=== PATIENT | male | born 1995 | race Caucasian/White ===

== ENCOUNTER 2023-07-25 23:18 | Emergency (ER) | payer OTHER, SELFPAY ==
[2023-07-25 23:20] VITALS: BP 150/93
[2023-07-26 02:20] VITALS: BMI 29.5
--- NOTE | 2023-07-26 02:21 | ED.GENMED ---
History of Present Illness
General
Chief Complaint: Musculo-Skeletal Complaint
Source: patient
Exam Limitations: none
Time Seen by Provider: 07/26/23 02:02
Nursing documentation reviewed up to this point in time: agreed with
Travel History
Have you had any contact with someone who has COVID-19?: No
Do you have any symptoms of coronavirus? Fever > 100 degrees, chills, cough, shortness of breath, sore throat, loss of taste or smell, muscle aches, or headache?: No
History of Present Illness
History of Present Illness:
Patient presents to ED secondary to worsening pain over the top of his right foot over the past 2 days. Denies loss of sensation or weakness. Denies fever or chills. Denies direct trauma. However, patient does report running over 20 miles
recently as part of his training, and jumping off the truck few days ago. Patient denies any pain at rest, but present when weightbearing. Patient has been able to ambulate by walking mostly on his heel. Denies previous history of similar
symptoms.
Review of Systems
Review of Systems
Allergies reviewed?: Yes
All Other Systems: ROS reviewed and negative except as documented in HPI and ROS
Constitutional: Reports no symptoms
Musculoskeletal: Reports other (foot pain)
Skin: Reports no symptoms
Neurological: Reports no symptoms
Phy Exam
Physical Exam
Physical Exam:
Physical Exam
General: no apparent distress, not acutely ill. afebrile
Head: nc/at. eomi
Neck: supple. normal range of motion
Neuro: alert and oriented. no focal neurological deficits
Skin: no rash
Psychiatric: well kept. interactive and cooperative
Extremities: right foot - mild tenderness noted over mid 2nd/3rd/4th metatarsal without erythema/swelling/ecchymosis. no obvious deformity. base of 5th metatarsal without tenderness.
Course
Orders/Labs/Results
Orders:
Orders
07/25/23 23:22
Foot, Right 3 View [CR Foot - Right Min 3 Views] Urgent
Comment:
Reason For Exam: pain
Vital Signs
Initial and Last Documented VS:
Initial Vital Signs
Temp Pulse Resp BP Pulse Ox
99.2 F 72 16 150/93 99
07/25/23 23:20 07/25/23 23:20 07/25/23 23:20 07/25/23 23:20 07/25/23 23:20
Last Documented Vital Signs
Temp Pulse Resp BP Pulse Ox
99.2 F 74 18 158/89 99
07/25/23 23:20 07/26/23 02:45 07/26/23 02:45 07/26/23 02:45 07/26/23 02:45
MDM/Problems Addressed
MDM/Problems Addressed:
X-ray without any acute findings. Patient's history and exam consistent with likely stress fracture versus foot strain. Otherwise, patient remains neurovascular intact. Patient will be placed on Ortho boot, with referral to podiatry versus
orthopedic surgeon for reevaluation as an outpatient.
*Critical Care Note
Total Time (30-74mins, 75-104mins- exclusive of procedures): Not Applicable
ED Attending Note
-
Portions of this chart may have been created with voice recognition software.� Occasional wrong word or��sound alike� substitutions may have occurred due to the inherent limitations of voice recognition software.
Discharge Plan
Departure
Patient Disposition: Home (Routine Discharge)
Date of Disposition: 07/26/23
Time of Disposition: 02:25
Patient with high blood pressure during this ER visit?: Yes
Discharge Problem:
Foot pain, Stress fracture
Instructions: Stress Fracture (DC), Walking Boot
Referrals:
Maurizio Ríos MD [Active] -
Rudy Barrios DPM [Specified Professional Personl] -
Activity Restrictions/Additional Instructions:
As discussed, please follow-up with referred orthopedic surgeon or sewer line repairer for further evaluation and treatment.
Interventions
Interventions:
*Risk Screen - Suicide Last Done: 07/25/23 23:20
*General Assessment Last Done: 07/25/23 23:20
*Neglect/Abuse Screening Last Done: 07/25/23 23:20
ED- Fall Risk Assessment Last Done: 07/26/23 02:30
*ED COVID-19 Vaccine History Last Done: 07/26/23 02:30
*Nursing Disposition Last Done: 07/26/23 02:45
ED-Musculoskeletal Assessment Last Done: 07/26/23 02:19
Discharge Date and Time
Discharge Date/Time: 07/26/23 02:45
Print Language: CITIZEN OF [place]
[2023-07-26 02:45] VITALS: BP 158/89
== END 2023-07-26 02:45 | disposition home or self-care (01) ==
LOC: EMR 23:18
PROVIDERS: EMERGENCY PHYSICIAN Emergency Medicine; FAMILY PHYSICIAN Family Medicine
DX: M84.374A Stress fracture, right foot, initial encounter for fracture (principal); X58.XXXA Exposure to other specified factors, initial encounter; M79.671 Pain in right foot; I10 Essential (primary) hypertension
CPT/HCPCS: 99283; 29515; 73630